=== PATIENT | male | born 1960 | race Caucasian/White ===

== ENCOUNTER 2017-03-08 10:10 | Emergency (ER) | payer OTHER ==
[~2017-03-08] VITALS: Ht 162.6 cm; Wt 78.5 kg
[2017-03-08 10:18] VITALS: Ht 162.6 cm; Wt 78.5 kg
[2017-03-08 10:50] LABS: BASOPHIL % 0.8 % (0-2); PLATELET COUNT 167 x10^3mcL (130-400); RED CELL DISTRIBUTION WIDTH 12.3 % (11.5-14.5)
[2017-03-08 11:07] LABS: microscopic required? YES; urine erythrocyte NEGATIVE (NEGATIVE)
[2017-03-08 11:08] LABS: CALCIUM 9.7 mg/dL (8.5-10.1); CARBON DIOXIDE 24.3 mmol/L (21-32); CHLORIDE SERUM 102 mmol/L (98-107); GFR1 > 60 mL/min; GLUCOSE SERUM 385 mg/dL (74-106); POTASSIUM SERUM 4.5 mmol/L (3.5-5.1); SODIUM SERUM 141 mmol/L (136-145)
[2017-03-08 11:12] LABS: ALBUMIN 4.4 g/dL (3.4-5.0); ALKALINE PHOSPHATASE 125 U/L (46-116); ALT/SGPT 54 U/L (16-63); BILIRUBIN TOTAL 0.75 mg/dL (0.20-1.00)
[2017-03-08 11:13] LABS: TOTAL PROTEIN, SERUM 8.7 g/dL (6.4-8.2)
[2017-03-08 11:14] LABS: AMYLASE 58 U/L (25-115); LIPASE 406 IU/L (73-393)
[2017-03-08 11:19] LABS: AMPHETAMINE QUAL UR NONE DETECTED (NEG <=1000)
[2017-03-08 11:26] LABS: AST/SGOT 18 U/L (15-37)
[2017-03-08 12:55] VITALS: BP 112/78
== END 2017-03-08 12:55 | disposition home or self-care (01) ==
LOC: ED 10:10
PROVIDERS: Emergency Medicine
DX: E11.9 Type 2 diabetes mellitus without complications (principal); I10 Essential (primary) hypertension
CPT/HCPCS: 36415; 82962; J1815; J7030